=== PATIENT | female | born 1990 | race African-American/Black ===

== ENCOUNTER 2021-12-05 17:44 | Day surgery (SDC) | payer OTHER ==
[2021-12-05] MEDS ORDERED: hydrALAZINE 20 MG/ML VIAL SLOW IVP PRN (18:31)
[2021-12-05 18:32] VITALS: BMI 36.0
== END 2021-12-05 20:11 | disposition home or self-care (01) ==
LOC: CSHLD/OP 17:44
PROVIDERS: ATTEND Obstetrics & Gynecology
DX: O47.1 False labor at or after 37 completed weeks of gestation (principal); O99.891 Other specified diseases and conditions complicating pregnancy; R03.0 Elevated blood-pressure reading, without diagnosis of hypertension; O34.211 Maternal care for low transverse scar from previous cesarean delivery; Z3A.38 38 weeks gestation of pregnancy

== ENCOUNTER 2021-12-08 07:48 | Inpatient (IN) | payer OTHER ==
[2021-12-08 08:41] VITALS: BMI 36.0
[2021-12-08] MEDS ORDERED: ePHEDrine Sulfate 50 MG/10 ML VIAL ONE (09:02)
[2021-12-08] MEDS ORDERED: Morphine PF 10 MG/10 ML VIAL ONE (09:02)
[2021-12-08] MEDS ORDERED: Oxytocin 10 UNITS/ML VIAL ONE (09:03)
[2021-12-08] MEDS ORDERED: Dexamethasone 4 mg/ml Vial ONE (09:03)
[2021-12-08] MEDS ORDERED: PHENYLEPHRINE-NS 100 MCG/ML 10 ML SYRINGE ONE (09:03)
[2021-12-08] MEDS ORDERED: Phenylephrine 40 MG/NS 250 ML 250 ML ONE (09:03)
[2021-12-08] MEDS ORDERED: Ketorolac Tromethamine 30 MG/ML VIAL ONE (09:03)
[2021-12-08] MEDS ORDERED: Ondansetron PF 4 MG/2 ML Vial ONE ×2 (09:03→10:24)
[2021-12-08 09:06] LABS: Hemoglobin 9.1 g/dL (12.0-15.5); Mean Corpuscular HGB CONC 30.6 g/dL (32.0-36.0); Mean Corpuscular Hemoglobin 22.5 pg (27.0-33.0); Mean Corpuscular Volume 73.3 fl (81.6-98.3); Mean Platelet Volume 9.6 fl (7.4-10.4); Platelet Count 317 10x3/uL (150-450); RBC Distribution Width 16.5 % (11.5-14.5); Red Blood Cell (RBC) Count 4.05 10x6/uL (3.90-5.03); White Blood Cell (WBC) Count 10.7 10x3/uL (3.5-10.5)
[2021-12-08] MEDS ORDERED: Famotidine/PF 20 mg/2ml Vial SLOW IVP PRN (09:25)
[2021-12-08] MEDS ORDERED: Bicitra 30 ML UDCUP PO PRN (09:25)
[2021-12-08] MEDS ORDERED: ceFAZolin 2 GM/Dextrose 50 ML 2 GM in Premix Bag 1 BAG IVPB SCH (09:30)
[2021-12-08 09:35] LABS: Hep B Surf Ag Non-Reactive S/CO (NonReactive); Syphilis Antibody Nonreactive (Nonreactive); Syphilis Antibody Index 0.07 S/CO (<1.00 Non-Reactive)
[2021-12-08 09:46] LABS: HBSAg Index 0.18 S/CO (0-0.99)
[2021-12-08 09:50] LABS: SARS-CoV-2 NAA Rapid Test Not Detected (NotDetected)
[2021-12-08] MEDS ORDERED: Naloxone HCl 0.4 mg/ml Vial IVP PRN ×2 (09:50)
[2021-12-08] MEDS ORDERED: Promethazine HCl 25 MG/ML VIAL IM PRN ×2 (09:50→22:42)
[2021-12-08] MEDS ORDERED: Ondansetron HCl/PF 4 MG/2 ML Vial IVP PRN (09:50)
[2021-12-08] MEDS ORDERED: Fentanyl 100 MCG/2 ML VIAL SLOW IVP PRN (09:50)
[2021-12-08] MEDS ORDERED: Ondansetron PF 4 MG/2 ML Vial IVP PRN ×2 (09:50→22:42)
[2021-12-08] MEDS ORDERED: Promethazine HCl 25 MG SUPP PR PRN (09:50)
[2021-12-08] MEDS ORDERED: Naloxone HCl 0.4 mg/ml Vial IV PRN (09:50)
[2021-12-08] MEDS ORDERED: Hydrocerin (Eucerin) Cream 120 gm Jar TOP PRN (09:50)
[2021-12-08] MEDS ORDERED: Meperidine HCl/PF 25 MG/ML VIAL SLOW IVP PRN (09:50)
[2021-12-08] MEDS ORDERED: Ketorolac Tromethamine 30 MG/ML VIAL IVP PRN (09:50)
[2021-12-08] MEDS ORDERED: Ketorolac Tromethamine 30 MG/ML VIAL IVP SCH (10:00)
[2021-12-08] MEDS ORDERED: Communication Order-Pharmacy FS SCH (10:00)
[2021-12-08] MEDS: diphenhydrAMINE 50 MG/ML VIAL IVP PRN ×2 (13:56→20:31)
[2021-12-08] MEDS ORDERED: hydrALAZINE 20 MG/ML VIAL SLOW IVP PRN (22:42)
[2021-12-08] MEDS ORDERED: Measles/Mumps/Rubella 10 MCG/0.5 ML VIAL SC ONE (22:42)
[2021-12-08] MEDS ORDERED: Methylergonovine 0.2 MG/ML VIAL IM PRN (22:42)
[2021-12-08] MEDS ORDERED: Bisacodyl 10 MG SUPP PR PRN (22:42)
[2021-12-08] MEDS ORDERED: Boostrix 0.5 ML (Tdap) VIAL IM ONE (22:42)
[2021-12-08] MEDS ORDERED: diphenhydrAMINE 25 MG CAP PO PRN (22:42)
[2021-12-08] MEDS ORDERED: Lanolin Ointment 7 GM TUBE TOP PRN (22:42)
[2021-12-08] MEDS ORDERED: Varicella virus, LIVE 0.5 ML VIAL SC ONE (22:42)
[2021-12-08] MEDS ORDERED: Misoprostol 200 MCG TAB PR PRN (22:42)
[2021-12-08] MEDS ORDERED: Zolpidem Tartrate 5 MG TAB PO PRN (22:42)
[2021-12-08] MEDS ORDERED: HYDROcodone/Acetaminophen 5/325 mg Tablet PO PRN (22:42)
[2021-12-08] MEDS ORDERED: NS w/ Oxytocin 30 units 500 ML IV SCH (22:42)
[2021-12-09 04:25] LABS: Hemoglobin 6.9 g/dL (12.0-15.5); Mean Corpuscular HGB CONC 32.5 g/dL (32.0-36.0); Mean Corpuscular Hemoglobin 23.6 pg (27.0-33.0); Mean Corpuscular Volume 72.6 fl (81.6-98.3); Mean Platelet Volume 10.1 fl (7.4-10.4); Platelet Count 261 10x3/uL (150-450); RBC Distribution Width 16.8 % (11.5-14.5); Red Blood Cell (RBC) Count 2.92 10x6/uL (3.90-5.03); White Blood Cell (WBC) Count 17.4 10x3/uL (3.5-10.5)
[2021-12-09] MEDS: HYDROcodone/Acetaminophen 5/325 mg Tablet PO PRN ×3 (07:16→21:51)
[2021-12-09] MEDS: Prenatal Vitamin 1 TAB PO SCH (09:24)
[2021-12-09] MEDS: Docusate 100 MG CAP PO SCH ×2 (09:24→21:50)
[2021-12-09] MEDS: Ferrous Sulfate 325 MG TAB PO SCH ×2 (09:24→21:50)
[2021-12-09] MEDS: Ibuprofen 800 MG TAB PO SCH ×2 (16:39→21:51)
[2021-12-09 18:42] LABS: #Monocytes 1.4 10x3/uL (0.0-1.1); #Neutrophils 9.5 10x3/uL (1.5-8.4); %Basophils 0.2 % (0.0-2.0); %Eosinophils 0.3 % (0.0-6.0); %Lymphocytes 13.6 % (18.0-47.0); %Monocytes 11.2 % (0.0-10.0); %Neutrophils 73.9 % (40.0-75.0); Hemoglobin 7.3 g/dL (12.0-15.5); Mean Corpuscular HGB CONC 31.3 g/dL (32.0-36.0); Mean Corpuscular Hemoglobin 23.1 pg (27.0-33.0); Mean Corpuscular Volume 73.7 fl (81.6-98.3); Mean Platelet Volume 9.7 fl (7.4-10.4); Platelet Count 267 10x3/uL (150-450); RBC Distribution Width 16.9 % (11.5-14.5); Red Blood Cell (RBC) Count 3.16 10x6/uL (3.90-5.03); White Blood Cell (WBC) Count 12.8 10x3/uL (3.5-10.5)
[2021-12-10] MEDS: HYDROcodone/Acetaminophen 5/325 mg Tablet PO PRN ×3 (03:17→15:20)
[2021-12-10] MEDS: Ibuprofen 800 MG TAB PO SCH ×3 (05:50→21:47)
[2021-12-10] MEDS: Prenatal Vitamin 1 TAB PO SCH (08:23)
[2021-12-10] MEDS: Ferrous Sulfate 325 MG TAB PO SCH ×2 (08:24→21:47)
[2021-12-10] MEDS: Simethicone Chewable 80 MG TAB PO PRN ×2 (08:24→21:47)
[2021-12-10] MEDS: Docusate 100 MG CAP PO SCH ×2 (08:24→21:47)
[2021-12-10] MEDS ORDERED: Fleet Enema 133 ML BOT PR SCH (16:00)
[2021-12-10] MEDS: Milk Of Magnesia 30 ML UDCUP PO PRN (16:41)
[2021-12-11] MEDS: Ibuprofen 800 MG TAB PO SCH ×3 (06:06→22:30)
[2021-12-11] MEDS: Simethicone Chewable 80 MG TAB PO PRN (06:06)
[2021-12-11] MEDS: HYDROcodone/Acetaminophen 5/325 mg Tablet PO PRN (06:07)
[2021-12-11] MEDS: Ferrous Sulfate 325 MG TAB PO SCH ×2 (08:41→22:30)
[2021-12-11] MEDS: Prenatal Vitamin 1 TAB PO SCH (08:41)
[2021-12-11] MEDS: Docusate 100 MG CAP PO SCH ×2 (08:41→22:30)
[2021-12-11] MEDS: Milk Of Magnesia 30 ML UDCUP PO PRN (12:55)
[2021-12-12] MEDS: Ibuprofen 800 MG TAB PO SCH ×2 (06:36→14:49)
[2021-12-12 07:31] VITALS: BP 129/79; TEMP 98.2
[2021-12-12] MEDS: Docusate 100 MG CAP PO SCH (08:29)
[2021-12-12] MEDS: Ferrous Sulfate 325 MG TAB PO SCH (08:29)
[2021-12-12] MEDS: Prenatal Vitamin 1 TAB PO SCH (08:29)
[2021-12-12] MEDS: HYDROcodone/Acetaminophen 5/325 mg Tablet PO PRN (08:33)
== END 2021-12-12 16:10 | disposition home or self-care (01) | DRG 787 ==
LOC: CSHLD 07:48 → CSHPP 13:25
PROVIDERS: ADMIT Obstetrics & Gynecology; ATTEND Obstetrics & Gynecology
PROC: 10D00Z1 Extraction of Products of Conception, Low, Open Approach (ICD-10-PCS; principal; 2021-12-09)
PROC: 0UB90ZZ Excision of Uterus, Open Approach (ICD-10-PCS; 2021-12-09)
DX: O34.211 Maternal care for low transverse scar from previous cesarean delivery (principal); D62 Acute posthemorrhagic anemia; O13.4 Gestational [pregnancy-induced] hypertension without significant proteinuria, complicating childbirth; O34.13 Maternal care for benign tumor of corpus uteri, third trimester; D50.9 Iron deficiency anemia, unspecified; O90.81 Anemia of the puerperium; D25.2 Subserosal leiomyoma of uterus; Z20.822 Contact with and (suspected) exposure to COVID-19; Z3A.39 39 weeks gestation of pregnancy; Z37.0 Single live birth; Z79.899 Other long term (current) drug therapy
CPT/HCPCS: 36415; 51702; 85027; 86780; 86850; 86900; 86901; 87340; 88305; J0690; J1100; J1200; J1885; J2274; J2405; J2590; S0028; U0002